=== PATIENT | female | born 1950 | race Caucasian/White ===

== ENCOUNTER → 2025-08-06 14:51 | Outpatient (REF) | payer MEDICARE, OTHER, SELFPAY | LOC: RCS 14:51 | PROVIDERS: ATTENDING PHYSICIAN Physician Assistant Medical; FAMILY PHYSICIAN Internal Medicine | DX: R55 Syncope and collapse (principal); I25.10 Atherosclerotic heart disease of native coronary artery without angina pectoris; I42.9 Cardiomyopathy, unspecified | CPT/HCPCS: 93306 ==